=== PATIENT | female | born 1985 | race Caucasian/White ===

== ENCOUNTER → 2017-01-01 | Outpatient (CLI) | payer OTHER ==
[~2017-01-01] VITALS: Ht 165.1 cm; Wt 92.7 kg
[~2017-01-01] MED LIST: BUPROPION HCL150 M2 PO; HYDROCHLOROTH12.5 M3 PO; LAMOTRIGINE100 M1 PO; METHADONE 22 MG/1 ML PO; METHADONE H5 MG/5 ML PO; METHADONE10 MG PO; METHERGINE0.2 MG PO; MOTRIN600 MG PO; NOHOMEMEDS; PRENATAL TABLE1 EAC3 PO; WELLBUTRIN XL150 MG PO; ZOFRAN4 MG PO
[2017-01-01 12:50] VITALS: BP 116/53
== END | disposition home or self-care (01) ==
LOC: IVINF 12-27 13:30
DX: Z31.82 Encounter for Rh incompatibility status (principal)
CPT/HCPCS: 96372; J2790

== ENCOUNTER 2017-03-23 08:20 | Inpatient (IN) | payer OTHER ==
[~2017-03-23] VITALS: Ht 165.1 cm; Wt 91.8 kg
[2017-03-23] VITALS (18 sets, daily range): BP systolic 95–131; BP diastolic 58–83
[2017-03-23 09:44] LABS: EOSINOPHIL (%) 0.4 % (0-5); HEMATOCRIT 36.5 % (36.0-46.0); IMMATURE GRANULOCYTE (%) 0.8 % (0.0-0.7); IMMATURE GRANULOCYTE COUNT 0.1 K/uL; INSTRUMENT ABS NEUTROPHIL CT 7.4 K/uL; LYMPHOCYTE COUNT 2.3 K/uL (1.0-2.8); MCH 29.9 PG (29.0-34.0); MCHC 33.7 G/DL (30.0-36.0); MCV 88.8 FL (83-99); MEAN PLAT.VOLUME 14.5 uM^3 (9.5-12.4); MONOCYTE (%) 9.8 % (3-12); MONOCYTE COUNT 1.1 K/uL (0-0.8); NEUTROPHIL (%) 67.6 % (45-76); NEUTROPHIL COUNT 7.4 K/uL (1.8-6.4); PLATELET COUNT 110 K/uL (156-360); RBC DIS.WIDTH-CV 14.2 % (11.8-14.6); RBC DIS.WIDTH-SD 45.2 % (39-53); RED BLOOD COUNT 4.11 M/uL (3.80-5.20); WHITE BLOOD COUNT 10.9 K/uL (4.1-10.2)
[2017-03-23] MEDS ORDERED: ZANTAC150 MG PO (09:49)
[2017-03-23 09:58] LABS: ADD MIUA? YES; BILIRUBIN NEGATIVE; BLOOD NEGATIVE; COLOR YELLOW ((YELLOW)); GLUCOSE (STRIP) NEGATIVE; KETONES NEGATIVE; LEUKOCYTES SMALL; NITRITE NEGATIVE; PROTEIN (STRIP) NEGATIVE; SPECIFIC GRAVITY 1.002 (1.000-1.030); UROBILINOGEN 0.2 MG/DL (0.2-1.0)
[2017-03-23 10:13] LABS: AMPHETAMINE NEGATIVE (500 ng/mL); BARBITURATES NEGATIVE (200 ng/mL); BENZODIAZEPINES NEGATIVE (150 ng/mL); COCAINE NEGATIVE (150 ng/mL); INTERNAL CONTROLS VALID? YES; METHADONE PRESUMPTIVE POSITIVE (200 ng/mL); METHAMPHETAMINE NEGATIVE (500 ng/mL); OPIATES (MORPHINE) NEGATIVE (100 ng/mL); OXYCODONE NEGATIVE (100 ng/mL); PHENCYCLIDINE NEGATIVE (25 ng/mL); PROPOXYPHENE NEGATIVE (300 ng/mL); THC CANNABINOIDS NEGATIVE (50 ng/mL); TRICYCLIC ANTIDEPRESSANTS NEGATIVE (300 ng/mL)
[2017-03-23 10:35] LABS: BACTERIA RARE /HPF; EPITHELIAL CELLS 1+ /HPF; MUCUS NONE SEEN /LPF; RED BLOOD CELLS 0-5 /HPF (0-5); UCUL ADDED? NO; WHITE BLOOD CELLS 0-5 /HPF (0-5)
[2017-03-23 10:36] LABS: CASTS NONE SEEN /LPF; CRYSTALS NONE SEEN
[2017-03-24 00:20] VITALS: BP 113/71
[2017-03-24 01:41] VITALS: BP 107/64
[2017-03-24 06:49] LABS: EOSINOPHIL (%) 0.1 % (0-5); HEMATOCRIT 31.5 % (36.0-46.0); IMMATURE GRANULOCYTE (%) 0.7 % (0.0-0.7); IMMATURE GRANULOCYTE COUNT 0.1 K/uL; INSTRUMENT ABS NEUTROPHIL CT 11.5 K/uL; LYMPHOCYTE COUNT 2.2 K/uL (1.0-2.8); MCH 30.5 PG (29.0-34.0); MCV 89.7 FL (83-99); MEAN PLAT.VOLUME 14.4 uM^3 (9.5-12.4); MONOCYTE (%) 8.2 % (3-12); MONOCYTE COUNT 1.2 K/uL (0-0.8); NEUTROPHIL (%) 76.2 % (45-76); NEUTROPHIL COUNT 11.5 K/uL (1.8-6.4); PLATELET COUNT 105 K/uL (156-360); RBC DIS.WIDTH-CV 14.1 % (11.8-14.6); RBC DIS.WIDTH-SD 45.9 % (39-53); RED BLOOD COUNT 3.51 M/uL (3.80-5.20); WHITE BLOOD COUNT 15.1 K/uL (4.1-10.2)
[2017-03-24 07:45] VITALS: BP 110/63
[2017-03-24 15:23] VITALS: BP 114/71
[2017-03-24 22:42] VITALS: BP 131/75
[2017-03-25] MEDS ORDERED: IBUPROFEN800 MG PO (05:31)
[2017-03-25 07:15] VITALS: BP 112/65
[2017-03-25 16:00] VITALS: BP 127/84
== END 2017-03-25 18:55 | disposition home or self-care (01) | DRG 774 ==
LOC: LDRP-OP → 2WEST 08:21 → LDRP-OP 04-30 20:18
PROVIDERS: Advanced Practice Midwife
DX: O98.42 Viral hepatitis complicating childbirth (principal); O99.340 Other mental disorders complicating pregnancy, unspecified trimester; F31.9 Bipolar disorder, unspecified; Z3A.39 39 weeks gestation of pregnancy; O99.324 Drug use complicating childbirth; F19.90 Other psychoactive substance use, unspecified, uncomplicated; O99.334 Smoking (tobacco) complicating childbirth; L29.9 Pruritus, unspecified; F17.200 Nicotine dependence, unspecified, uncomplicated; B18.2 Chronic viral hepatitis C; Z37.0 Single live birth
CPT/HCPCS: 81003; 83030; 85025; 86900; 86901; J1050; J2790; J3010; J7120

== ENCOUNTER 2017-07-09 10:04 | Day surgery (SDC) | payer OTHER ==
[~2017-07-09] VITALS: Ht 165.1 cm; Wt 90.8 kg
[~2017-07-09 10:04] MED LIST changes: +IBUPROFEN800 MG PO; +ZANTAC150 MG PO
[2017-07-09 10:37] VITALS: BP 113/67
[2017-07-09 11:48] LABS: METH RESISTANT S AUREUS PCR NEGATIVE (NEGATIVE)
[2017-07-09 11:56] LABS: PROBE CHECK PASS; SPECIMEN PROCESSING CONTROL PASS
[2017-07-09] MEDS ORDERED: ENDOCET 5-3251 EACH PO (12:09)
[2017-07-09] MEDS ORDERED: IBUPROFEN800 MG PO (12:09)
[2017-07-09 13:25] VITALS: BP 138/78
[2017-07-09 14:14] VITALS: BP 140/80
== END 2017-07-09 14:10 | disposition home or self-care (01) ==
LOC: SDC
PROVIDERS: Obstetrics & Gynecology
PROC: 0U574ZZ Destruction of Bilateral Fallopian Tubes, Percutaneous Endoscopic Approach (ICD-10-PCS; principal; 2017-07-09)
DX: Z30.2 Encounter for sterilization (principal); B18.2 Chronic viral hepatitis C; E66.9 Obesity, unspecified; Z68.33 Body mass index [BMI] 33.0-33.9, adult; I10 Essential (primary) hypertension; J45.909 Unspecified asthma, uncomplicated; F17.210 Nicotine dependence, cigarettes, uncomplicated; F11.20 Opioid dependence, uncomplicated
CPT/HCPCS: 87641; J0131; J1100; J1170; J1885; J2175; J2250; J2405; J2550; J2710; J2765; J3010